=== PATIENT | female | born 1970 | race African-American/Black ===

== ENCOUNTER 2018-04-14 02:15 | Emergency (ER) | payer OTHER ==
[~2018-04-14] VITALS: Ht 154.9 cm; Wt 82.6 kg
[2018-04-14] MEDS ORDERED: methylPREDNISolone SOD SUCC 125 MG/2 ML VL IV ONE (02:30)
[2018-04-14] MEDS ORDERED: diphenhdrAMINE HCL 50 MG/1 ML VL IV ONE (02:30)
[2018-04-14] MEDS ORDERED: SODIUM CHLORIDE 0.9% 1,000 ML IV ONE (02:30)
[2018-04-14] MEDS ORDERED: EPINEPHrine HCL 1 MG/1 ML AMP SC ONE ×2 (02:30→05:15)
[2018-04-14] MEDS ORDERED: diphenhdrAMINE HCL 50 MG/1 ML VL ONE (02:40)
[2018-04-14] MEDS ORDERED: FAMOTIDINE (10MG/ML) 2ML VL IV ONE (03:30)
[2018-04-14 05:30] LABS: Urine Bacteria NONE SEEN /hpf (None Seen); Urine Blood Negative /uL (Negative); Urine Specific Gravity 1.005 (1.001-1.035); Urine WBC 1 /hpf (0 - 5)
[2018-04-14 05:39] VITALS: BP 116/64
== END 2018-04-14 05:39 | disposition home or self-care (01) ==
LOC: ER 02:18
DX: T78.1XXA Other adverse food reactions, not elsewhere classified, initial encounter (principal); R21 Rash and other nonspecific skin eruption; L29.9 Pruritus, unspecified; X58.XXXA Exposure to other specified factors, initial encounter
CPT/HCPCS: 81001; 94761; 96372; 96374; 96375; 99285; J0171; J1200; J2930; J3490; J7030

== ENCOUNTER 2018-06-16 02:54 | Emergency (ER) | payer MEDICAID ==
[~2018-06-16] VITALS: Ht 154.9 cm; Wt 81.6 kg
[2018-06-16 03:20] VITALS: BP 116/71
[2018-06-16] MEDS ORDERED: methylPREDNISolone SOD SUCC 125 MG/2 ML VL IM ONE (05:30)
== END 2018-06-16 06:01 | disposition home or self-care (01) ==
LOC: ER 02:56
DX: R21 Rash and other nonspecific skin eruption (principal); L29.9 Pruritus, unspecified
CPT/HCPCS: 96372; 99283; J2930

== ENCOUNTER 2018-07-04 14:06 | Emergency (ER) | payer MEDICAID ==
[~2018-07-04] VITALS: Ht 154.9 cm; Wt 81.6 kg
[~2018-07-04 14:06] MED LIST: METF-370 PO; PANT40TA2 PO; PRE5T PO
[2018-07-04] MEDS ORDERED: cefTRIAXone SOD 500 MG VL IV ONE (15:15)
[2018-07-04] MEDS ORDERED: hydrOXYzine 25 MG TAB or CAP PO ONE (15:15)
[2018-07-04] MEDS ORDERED: methylPREDNISolone SOD SUCC 125 MG/2 ML VL IV ONE (15:15)
[2018-07-04] MEDS ORDERED: cefTRIAXone 1GM/50ML D5W 50 ML IV ONE (15:15)
[2018-07-04 17:30] VITALS: BP 126/55
== END 2018-07-04 17:41 | disposition home or self-care (01) ==
LOC: ER 14:06
DX: C84.09 Mycosis fungoides, extranodal and solid organ sites (principal); L73.9 Follicular disorder, unspecified; E11.9 Type 2 diabetes mellitus without complications; E78.5 Hyperlipidemia, unspecified; Z88.8 Allergy status to other drugs, medicaments and biological substances; Z79.84 Long term (current) use of oral hypoglycemic drugs; Z79.899 Other long term (current) drug therapy
CPT/HCPCS: 96365; 96375; 99284; J0696; J2930

== ENCOUNTER 2018-08-13 13:04 | Emergency (ER) | payer MEDICAID ==
[~2018-08-13] VITALS: Ht 154.9 cm; Wt 81.6 kg
[2018-08-13 13:25] VITALS: BP 109/68
[2018-08-13] MEDS ORDERED: EPINEPHrine HCL 1 MG/1 ML AMP SC ONE (13:45)
[2018-08-13] MEDS ORDERED: methylPREDNISolone SOD SUCC 125 MG/2 ML VL IV ONE (13:45)
[2018-08-13] MEDS ORDERED: diphenhdrAMINE HCL 50 MG/1 ML VL IV ONE (13:45)
[2018-08-13] MEDS ORDERED: SODIUM CHLORIDE 0.9% 500 ML IV ONE (14:00)
[2018-08-13] MEDS ORDERED: FAMOTIDINE (10MG/ML) 2ML VL IV ONE (14:30)
== END 2018-08-13 15:31 | disposition home or self-care (01) ==
LOC: ER 13:04
DX: T78.40XA Allergy, unspecified, initial encounter (principal); L95.9 Vasculitis limited to the skin, unspecified; E11.9 Type 2 diabetes mellitus without complications; E78.5 Hyperlipidemia, unspecified; Z88.6 Allergy status to analgesic agent; X58.XXXA Exposure to other specified factors, initial encounter
CPT/HCPCS: 96372; 96374; 96375; 99283; J0171; J2930; J3490; J7040

== ENCOUNTER 2018-09-23 13:37 | Emergency (ER) | payer MEDICAID ==
[~2018-09-23] VITALS: Ht 154.9 cm; Wt 81.6 kg
[2018-09-23 14:45] LABS: Hematocrit 37.2 % (36.0-46.0); Hemoglobin 12.2 g/dL (12.2-16.2); Mean Corpuscular Hemoglobin 29.7 pg (28.0-32.0); Mean Corpuscular Hgb Conc. 32.8 g/dL (32.0-36.0); Mean Corpuscular Volume 90.7 fL (80.0-100.0); Platelet Count (auto) 315 10^3/uL (140-450); Red Cell Distribution Width 15.7 % (11.8-14.3); White Blood Cell 19.5 10^3/uL (4.4-10.8)
[2018-09-23 14:48] LABS: Band Neutrophils % (manual) 0; Basophils % (manual) 0 (0.0-2.0); Blast Cells 0; Metamyelocytes % 0; Myelocytes % 0; Promyelocytes % 0
[2018-09-23 15:07] LABS: Albumin 3.1 g/dL (3.4-5.0); Calcium 8.7 mg/dL (8.5-10.1); Potassium 3.7 mmol/L (3.5-5.1)
[2018-09-23 15:11] LABS: BUN/Creatinine Ratio 9.3; Bilirubin, Total 0.6 mg/dL (0.2-1.0); Total Protein 7.9 g/dL (6.4-8.2)
[2018-09-23] MEDS ORDERED: predniSONE 20 MG TAB PO ONE (15:45)
[2018-09-23 16:19] LABS: Lymphocytes % (manual) 50 (10.0-50.0)
[2018-09-23 16:20] LABS: Eosinophils % (manual) 10 (0-7); Monocytes % (manual) 11 (0-12); Reactive Lymphocytes 3
[2018-09-23 17:04] VITALS: BP 113/72
== END 2018-09-23 17:54 | disposition home or self-care (01) ==
LOC: ER 13:37
DX: L30.9 Dermatitis, unspecified (principal); E11.9 Type 2 diabetes mellitus without complications; E78.00 Pure hypercholesterolemia, unspecified; Z88.8 Allergy status to other drugs, medicaments and biological substances; Z79.899 Other long term (current) drug therapy
CPT/HCPCS: 36415; 71045; 80053; 85007; 85027; 99284; J7512

== ENCOUNTER → 2019-10-20 | Emergency (ER) | payer MEDICAID ==
[~2019-10-20] VITALS: Ht 154.9 cm; Wt 74.8 kg
[~2019-10-20] MED LIST changes: +SODIUM CHLORIDE 0.9% 1,000 ML IV ONE; +SODIUM CHLORIDE 0.9% 500 ML IV ONE; +diphenhdrAMINE HCL 50 MG/1 ML VL IV ONE; +methylPREDNISolone SOD SUCC 1,000 MG in SODIUM CHL 0.9% 100 ML IV ONE
[2019-10-20 07:40] LABS: Basophils # (auto) 0.1 10 ^3/uL (0-0.2); Basophils % (auto) 1.5 % (0.0-2.0); Eosinophils # (auto) 0.1 10 ^3/uL (0-0.8); Eosinophils % (auto) 1.3 % (0.0-7.0); Hematocrit 39.4 % (36.0-46.0); Lymphocytes # (auto) 2.8 10 ^3/uL (0.4-5.4); Lymphocytes % (auto) 29.4 % (10.0-50.0); Mean Corpuscular Hemoglobin 29.6 pg (28.0-32.0); Mean Corpuscular Hgb Conc. 32.9 g/dL (32.0-36.0); Monocytes # (auto) 0.5 10 ^3/uL (0-1.3); Monocytes % (auto) 5.1 % (0.0-12.0); Neutrophils # (auto) 5.9 10 ^3/uL (1.6-8.6); Neutrophils % (auto) 62.7 % (37.0-80.0); Platelet Count (auto) 264 10^3/uL (140-450); Red Blood Cells 4.38 10^6/uL (4.0-5.20); Red Cell Distribution Width 14.8 % (11.8-14.3); White Blood Cell 9.4 10^3/uL (4.4-10.8)
[2019-10-20 07:54] LABS: Partial Thromboplastin Time 24.2 sec (23.64-32.05)
[2019-10-20 07:58] LABS: Anion Gap 7 (5-15); Blood Urea Nitrogen 17 mg/dL (7-18); Calcium 9.2 mg/dL (8.5-10.1); Carbon Dioxide 27 mmol/L (21-32); Chloride 106 mmol/L (98-107); Glucose 152 mg/dL (74-106); Sodium 140 mmol/L (136-145)
[2019-10-20 08:03] LABS: Alanine Aminotransferase 13 U/L (13-56); Alkaline Phosphatase 57 U/L (45-117); Aspartate Aminotransferase 11 U/L (15-37); BUN/Creatinine Ratio 22.4; Bilirubin, Total 0.3 mg/dL (0.2-1.0); GFR African American 103 mL/min; GFR Non-African American 85 mL/min; Total Protein 7.5 g/dL (6.4-8.2)
[2019-10-20 10:44] VITALS: BP 119/67
[2019-10-20 10:48] LABS: Urine Bacteria NONE SEEN /hpf (None Seen); Urine Blood Negative /uL (Negative); Urine WBC 2 /hpf (0 - 5)
== END | disposition home or self-care (01) ==
LOC: ER 02:51
DX: R21 Rash and other nonspecific skin eruption (principal); T45.1X5A Adverse effect of antineoplastic and immunosuppressive drugs, initial encounter; E46 Unspecified protein-calorie malnutrition; E11.9 Type 2 diabetes mellitus without complications; E78.5 Hyperlipidemia, unspecified; Z68.31 Body mass index [BMI] 31.0-31.9, adult; Z88.8 Allergy status to other drugs, medicaments and biological substances; Z79.899 Other long term (current) drug therapy; Y92.89 Other specified places as the place of occurrence of the external cause
CPT/HCPCS: 36415; 71045; 80053; 81001; 84484; 85025; 85610; 85730; 96365; 96366; 99284; J2930; J7040

== ENCOUNTER 2021-11-14 12:56 | Emergency (ER) | payer MEDICAID ==
[~2021-11-14] VITALS: Ht 154.9 cm; Wt 74.8 kg
[~2021-11-14 12:56] MED LIST changes: -SODIUM CHLORIDE 0.9% 1,000 ML IV ONE; -SODIUM CHLORIDE 0.9% 500 ML IV ONE; -diphenhdrAMINE HCL 50 MG/1 ML VL IV ONE; -methylPREDNISolone SOD SUCC 1,000 MG in SODIUM CHL 0.9% 100 ML IV ONE
[2021-11-14 13:00] VITALS: BP 123/76
[2021-11-14] MEDS ORDERED: FAMOTIDINE (10MG/ML) 2ML VL IV ONE (14:00)
[2021-11-14] MEDS ORDERED: methylPREDNISolone SOD SUCC 125 MG/2 ML VL IV ONE (14:00)
[2021-11-14] MEDS ORDERED: EPINEPHrine HCL 1 MG/1 ML AMP SC ONE (14:00)
== END 2021-11-14 14:54 | disposition home or self-care (01) ==
LOC: ER 12:56
DX: L50.0 Allergic urticaria (principal); E11.9 Type 2 diabetes mellitus without complications; E78.5 Hyperlipidemia, unspecified; Z79.899 Other long term (current) drug therapy; Z88.8 Allergy status to other drugs, medicaments and biological substances
CPT/HCPCS: 96372; 96374; 96375; 99284; J0171; J2930; J3490

== ENCOUNTER 2021-12-13 17:07 | Emergency (ER) | payer MEDICAID ==
[~2021-12-13] VITALS: Ht 154.9 cm; Wt 74.8 kg
[2021-12-13 17:27] VITALS: BP 146/85
[2021-12-13] MEDS ORDERED: ALBU108A5 IN (18:14)
[2021-12-13] MEDS ORDERED: LEVO500T31 PO (18:14)
[2021-12-13] MEDS ORDERED: PROM1SOL4 PO (18:14)
[2021-12-13] MEDS ORDERED: ALBUTEROL SULF 2.5 MG/0.5ML(0.5%) NEB SOLN NEB ONE (18:15)
[2021-12-13] MEDS ORDERED: IPRATROPIUM BROM 0.5 MG/2.5ML INH SOL NEB ONE (18:15)
== END 2021-12-13 18:30 | disposition home or self-care (01) ==
LOC: ER 17:07
DX: J20.9 Acute bronchitis, unspecified (principal); E11.9 Type 2 diabetes mellitus without complications; E78.5 Hyperlipidemia, unspecified
CPT/HCPCS: 71046; 94640; 99283; J7644